=== PATIENT | male | born 1960 | race Two or more races ===

== ENCOUNTER 2024-10-08 13:50 | Inpatient (IN) | payer BC, OTHER ==
[~2024-10-08] VITALS: Ht 167.6 cm; Wt 60.3 kg
--- NOTE | 2024-10-08 14:18 | ED.PDOC ---
HPI (NEURO) HPI Comments 64 year old male JAVIER presents to the ED with chief complaint of generalized weakness. EMS reports patient was at work when all of a sudden, started to experience weakness with a near syncopal episode, being carried down by co- workers so he does not fall. EMS relays patient was noted to be bradycardic on scene and continued to be so until now. Patient states he has been experiencing some weakness and dizziness since last night. Patient notes he stands for extended periods of time at work. Patient denies any N/V/D, headache, syncope, fever, or chills. Time Seen by MD: 14:13 Reviewed Notes: Nurses Notes, [employer]ing Machine Notes, Medications, Allergies Information Source: Patient, Emergency Med Personnel Mode of Arrival: EMS Severity: Moderate Dizziness/Weakness Severity: Unable to do activities Headache Severity: None Timing: Days Duration: Since onset Prehospital treatment: None Weakness Location: Generalized Symptoms: Near syncope, Weakness Past Medical History PAST MEDICAL HISTORY: Cancer (Esophageal cancer) Surgical History: Denies all surgeries Family History Family History: Reviewed,noncontributory to illness Social History Smoker: Non-Smoker Alcohol: Denies ETOH Use Drugs: Denies Drug Use Lives In: Home Constitutional: denies: chills, diaphoresis, fatigue, fever, malaise, sweats, weakness, others EENTM: denies: blurred vision, double vision, ear bleeding, ear discharge, ear drainage, ear pain, ear ringing, eye pain, eye redness, hearing loss, mouth pain, mouth swelling, nasal discharge, nose bleeding, nose congestion, nose pain, photophobia, tearing, throat pain, throat swelling, voice changes, others Respiratory: denies: cough, hemoptysis, orthopnea, SOB at rest, shortness of breath, SOB with excertion, stridor, wheezing, others Cardiovascular: reports: others (Near syncope); denies: chest pain, dizzy spells, diaphoresis, Dyspnea on exertion, edema, irregular heart beat, left arm pain, lightheadedness, palpitations, PND, syncope Gastrointestinal: denies: abdomen distended, abdominal pain, blood streaked bowels, constipated, diarrhea, dysphagia, difficulty swallowing, hematemesis, melena, nausea, poor appetite, poor fluid intake, rectal bleeding, rectal pain, vomiting, others Genitourinary: denies: burning, dysuria, flank pain, frequency, hematuria, incontinence, penile discharge, penile sore, pain, testicle pain, testicle swelling, urgency, others Neurological: reports: dizziness, weakness; denies: fainting, headache, left sided numbness, left sided weakness, numbness, paresthesia, pre-existing deficit, right sided numbness, right sided weakness, seizure, speech problems, tingling, tremors, others Musculoskeletal: denies: back pain, gout, joint pain, joint swelling, muscle pain, muscle stiffness, neck pain, others Integumetry: denies: bruises, change in color, change in hair/nails, dryness, laceration, lesions, lumps, rash, wounds, others Allergic/Immunocompromised: denies: Difficulty Healing, Frequent Infections, Hives, Itching, others Hematologic/Lymphatic: denies: anemia, blood clots, easy bleeding, easy bruising, swollen glands, others Endocrine: denies: excessive hunger, excessive sweating, excessive thirst, excessive urination, flushing, intolerance to cold, intolerance to heat, unexplained weight gain, unexplained weight loss, others Psychiatric: denies: anxiety, bipolar disorder, depression, hopeless, panic disorder, schizophrenia, sleepless, suicidal, others All Other Systems: Reviewed and Negative Physical Exam General Appearance: Moderate Distress, Normal HEENT: Normal ENT Inspection, PERRL/EOMI Neck: Full Range of Motion, Non-Tender, Normal, Normal Inspection Respiratory: Chest Non-Tender, Lungs Clear, No Accessory Muscle Use, No Respiratory Distress, Normal Breath Sounds Cardiovascular: Bradycardia, No Edema, No JVD, No Murmur, No Gallop, Normal Peripheral Pulses Breast Exam: Deferred Gastrointestinal: No Organomegaly, Non Tender, No Pulsatile Mass, Normal Bowel Sounds, Soft Genitalia: Deferred Pelvic: Deferred Rectal: Deferred Extremities: No calf tenderness, Normal capillary refill, Normal inspection, Normal range of motion, Non-tender, No pedal edema Musculoskeletal : Apperance: Normal 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 Was a procedure done?: No Differential Diagnosis (SZ) Seizure: Psychogenic Seizure, Closed Head Injury, CVA/TIA X-Ray, Labs, Meds, VS Vital Signs Date Time Temp Pulse Resp B/P (MAP) Pulse Ox O2 Delivery O2 Flow Rate FiO2 10/08/24 15:06 54 16 131/87 (102) 97 10/08/24 14:26 97.4 52 14 136/88 (104) 98 10/08/24 14:19 56 Lab Test 10/08/24 14:34 Range/Units White Blood Count 5.8 4.4-10.8 10^3/uL Red Blood Count 4.85 4.5-5.90 10^6/uL Hemoglobin 13.2 L 13.5-17.5 g/dL Hematocrit 40.1 L 41.0-53.0 % Mean Corpuscular Volume 82.7 80.0-100.0 fL Mean Corpuscular Hemoglobin 27.3 L 28.0-32.0 pg Mean Corpuscular Hemoglobin Concent 33.0 32.0-36.0 g/dL Red Cell Distribution Width 15.0 H 11.8-14.3 % Platelet Count 351 140-450 10^3/uL Mean Platelet Volume 6.2 L 6.9-10.8 fL Neutrophils (%) (Auto) 80.1 H 37.0-80.0 % Lymphocytes (%) (Auto) 11.2 10.0-50.0 % Monocytes (%) (Auto) 6.1 0.0-12.0 % Eosinophils (%) (Auto) 1.3 0.0-7.0 % Basophils (%) (Auto) 1.3 0.0-2.0 % Neutrophils # (Auto) 4.6 1.6-8.6 10 ^3/uL Lymphocytes # (Auto) 0.6 0.4-5.4 10 ^3/uL Monocytes # (Auto) 0.4 0-1.3 10 ^3/uL Eosinophils # (Auto) 0.1 0-0.8 10 ^3/uL Basophils # (Auto) 0.1 0-0.2 10 ^3/uL Nucleated Red Blood Cells 0.0 % Sodium Level 137 136-145 mmol/L Potassium Level 4.5 3.5-5.1 mmol/L Chloride Level 104 98-107 mmol/L Carbon Dioxide Level 24 20-31 mmol/L Anion Gap 9 5-15 Blood Urea Nitrogen 17 9-23 mg/dL Creatinine 0.91 0.700-1.30 mg/dL Glomerular Filtration Rate Calc 95 >90 mL/min BUN/Creatinine Ratio 18.7 10.0-20.0 Serum Glucose 99 74-106 mg/dL Calcium Level 10.1 8.7-10.4 mg/dL Troponin I High Sensitivity 3 L </=54 ng/L Patient alert. Near-syncope. History of nasopharyngeal carcinoma. Vitals stable. Never hit his head on the ground. Bradycardia. Reviewed his history. EKG reviewed does not show any acute changes. Explained to the patient. Continue cardiac monitoring. Chest XR: FINDINGS: Lines and Tubes: None Lungs: No focal consolidation. Pleura: No effusion. No pneumothorax. Cardiomediastinal contours: Unremarkable Bones: No acute osseous abnormality. IMPRESSION: 1. No active disease Images Reviewed?: Images reviewed and evaluated by me Time of 1ST Reevaluation: 15:13 Reevaluation 1ST: Unchanged Patient Education/Counseling: Diagnosis, Treatment Family Education/Counseling: No Family Present Departure 1 Departure Time of Disposition: 14:28 Impression: Primary Impression: Bradycardia Additional Impression: Near syncope Disposition: ADMITTED INPATIENT Admit to: Med Surg Condition: Guarded Critical Care Note Critical Care Time?: Yes (45 min-critical care time only) Stability Stability form required: No Heart Score Heart Score: Heart Score Response (Comments) Value History Slightly Suspicious 0 EKG Normal 0 Age 45-64 1 Risk Factors 1 or 2 risk factors 1 Troponin Normal limit 0 Total 2 I personally scribed for MANUELA QUINONES MD ([email or web address]) on 10/08/24 at 14:18. Electronically submitted by Stanislav Quintana ([email or web address]). I personally scribed for MANUELA QUINONES MD ([email or web address]) on 10/08/24 at 15:23. Electronically submitted by Stanislav Quintana ([email or web address]). MANUELA QUINONES MD Oct 08, 2024 14:18
[2024-10-08 14:45] LABS: Basophils # (auto) 0.1 10 ^3/uL (0-0.2); Basophils % (auto) 1.3 % (0.0-2.0); Eosinophils # (auto) 0.1 10 ^3/uL (0-0.8); Eosinophils % (auto) 1.3 % (0.0-7.0); Hematocrit 40.1 % (41.0-53.0); Hemoglobin 13.2 g/dL (13.5-17.5); Lymphocytes # (auto) 0.6 10 ^3/uL (0.4-5.4); Lymphocytes % (auto) 11.2 % (10.0-50.0); Mean Corpuscular Hemoglobin 27.3 pg (28.0-32.0); Mean Corpuscular Volume 82.7 fL (80.0-100.0); Monocytes # (auto) 0.4 10 ^3/uL (0-1.3); Monocytes % (auto) 6.1 % (0.0-12.0); Neutrophils # (auto) 4.6 10 ^3/uL (1.6-8.6); Neutrophils % (auto) 80.1 % (37.0-80.0); Platelet Count (auto) 351 10^3/uL (140-450); Red Blood Cells 4.85 10^6/uL (4.5-5.90); White Blood Cell 5.8 10^3/uL (4.4-10.8)
--- NOTE | 2024-10-08 14:58 | DVH ---
CHEST RADIOGRAPH Indication:sob Technique: Single frontal view of the chest was obtained Comparison: None FINDINGS: Lines and Tubes: None Lungs: No focal consolidation. Pleura: No effusion. No pneumothorax. Cardiomediastinal contours: Unremarkable Bones: No acute osseous abnormality. IMPRESSION: 1. No active disease
[2024-10-08 15:01] LABS: Chloride 104 mmol/L (98-107); Potassium 4.5 mmol/L (3.5-5.1); Sodium 137 mmol/L (136-145)
[2024-10-08 15:02] LABS: Anion Gap 9 (5-15); Calcium 10.1 mg/dL (8.7-10.4); Carbon Dioxide 24 mmol/L (20-31)
[2024-10-08 15:06] VITALS: PULSE 62; RESP 16; O2SAT 98
[2024-10-08 15:07] LABS: BUN/Creatinine Ratio 18.7 (10.0-20.0); Blood Urea Nitrogen 17 mg/dL (9-23); Glucose 99 mg/dL (74-106)
[2024-10-08] MEDS ORDERED: HYDROcodone-ACET 5/325MG TAB PO PRN (17:30)
[2024-10-08] MEDS ORDERED: LORazepam 0.5 MG TAB PO PRN (17:30)
[2024-10-08] MEDS ORDERED: MAALOX PLUS or MAALOX 30 ML PO PRN (17:30)
[2024-10-08] MEDS ORDERED: DOCUSATE SOD 100 MG CAP PO PRN (17:30)
[2024-10-08] MEDS ORDERED: ACETAMINOPHEN 325 MG TAB PO PRN (17:30)
[2024-10-08] MEDS ORDERED: ONDANSETRON HCL 4 MG/2 ML VIAL IV PRN (17:30)
[2024-10-08] MEDS: SODIUM CHLORIDE 0.9% 1,000 ML IV ONE (17:52)
--- NOTE | 2024-10-08 17:58 | DVHHP2 ---
History of Present Illness Reason for Visit: weakness History of Present Illness 64 yo with complaints of weakness and dizziness and passing out for the last day or so to the point he had a near complete syncopal episode that he was assisted with no stated fall related injuries but continued weakness and discomfort patient recommended for ed admission for further evaluation and continued management Cardiovascular: syncope Review of Systems Constitutional: Yes: Weakness; No: Fever, Chills, Sweats, Malaise, Other Eyes: No: Pain, Vision change, Conjunctivae inflammation, Eyelid inflammation, Other, Redness ENT: No: Ear pain, Ear discharge, Nose pain, Nose discharge, Nose congestion, Mouth pain, Mouth swelling, Throat pain, Throat swelling, Other Respiratory: No: Cough, Dry, Shortness of breath, SOB with excertion, Wheezing, Hemoptysis, Pleuritic Pain, Sputum, Wheezing, Other Cardiovascular: No: Chest Pain, Palpitations, Orthopnea, Paroxysmal Noc. Dyspnea, Edema, Lt Headedness, Other Gastrointestinal: No: Nausea, Vomiting, Abdominal Pain, Diarrhea, Constipation, Melena, Hematochezia, Other Genitourinary: No Dysuria, No Frequency, No Incontinence, No Hematuria, No Retention, No Other Musculoskeletal: No: other, neck pain, shoulder pain, arm pain, back pain, hand pain, leg pain, foot pain Skin: No: Rash, Lesions, Jaundice, Bruising, Other Neurological: Weakness; No: Numbness, Incoordination, Change in speech, Confusion, Seizures, Other Allergies: Coded Allergies: NO KNOWN ALLERGIES (Unverified , 10/08/24) Medications Current Medications Medications Dose Ordered Sig/Agnieszka Route Start Time Stop Time Status Last Admin Dose Admin Sodium Chloride 1,000 ml @ 60 mls/hr [id number] IV 10/08/24 17:30 UNV Lorazepam 0.5 mg Q6HP PRN PO 10/08/24 17:30 UNV Al Hydrox/Mg Hydrox/Simethicone 30 ml Q6HP PRN PO 10/08/24 17:30 UNV Docusate Sodium 100 mg BIDPRN PRN PO 10/08/24 17:30 UNV Acetaminophen 650 mg Q6HP PRN PO 10/08/24 17:30 UNV Acetaminophen/ Hydrocodone Bitart 1 tab Q4HP PRN PO 10/08/24 17:30 UNV Ondansetron HCl 4 mg Q4HP PRN IV 10/08/24 17:30 UNV Exam Vital Signs Vital Signs Date Time Temp Pulse Resp B/P (MAP) Pulse Ox O2 Delivery O2 Flow Rate FiO2 10/08/24 16:29 98.0 60 14 120/89 (99) 97 98.0 10/08/24 15:06 Room Air* 0 21 General Appearance: Oriented X3 HEENT: Atraumatic, PERRLA Respiratory: Clear to auscultation, Normal air movement Cardiovascular: Regular rate, Normal S1, Normal S2 Abdominal: Normal bowel sounds, Soft Extremities: No clubbing, No cyanosis, No edema Skin: No rashes, No breakdown, No significant lesion Neuro: Normal gait, Normal speech Psych/Mental Status: Mental status NL, Mood NL Labs/Xrays Labs Test 10/08/24 14:34 Range/Units White Blood Count 5.8 4.4-10.8 10^3/uL Red Blood Count 4.85 4.5-5.90 10^6/uL Hemoglobin 13.2 L 13.5-17.5 g/dL Hematocrit 40.1 L 41.0-53.0 % Mean Corpuscular Volume 82.7 80.0-100.0 fL Mean Corpuscular Hemoglobin 27.3 L 28.0-32.0 pg Mean Corpuscular Hemoglobin Concent 33.0 32.0-36.0 g/dL Red Cell Distribution Width 15.0 H 11.8-14.3 % Platelet Count 351 140-450 10^3/uL Mean Platelet Volume 6.2 L 6.9-10.8 fL Neutrophils (%) (Auto) 80.1 H 37.0-80.0 % Lymphocytes (%) (Auto) 11.2 10.0-50.0 % Monocytes (%) (Auto) 6.1 0.0-12.0 % Eosinophils (%) (Auto) 1.3 0.0-7.0 % Basophils (%) (Auto) 1.3 0.0-2.0 % Neutrophils # (Auto) 4.6 1.6-8.6 10 ^3/uL Lymphocytes # (Auto) 0.6 0.4-5.4 10 ^3/uL Monocytes # (Auto) 0.4 0-1.3 10 ^3/uL Eosinophils # (Auto) 0.1 0-0.8 10 ^3/uL Basophils # (Auto) 0.1 0-0.2 10 ^3/uL Nucleated Red Blood Cells 0.0 % Sodium Level 137 136-145 mmol/L Potassium Level 4.5 3.5-5.1 mmol/L Chloride Level 104 98-107 mmol/L Carbon Dioxide Level 24 20-31 mmol/L Anion Gap 9 5-15 Blood Urea Nitrogen 17 9-23 mg/dL Creatinine 0.91 0.700-1.30 mg/dL Glomerular Filtration Rate Calc 95 >90 mL/min BUN/Creatinine Ratio 18.7 10.0-20.0 Serum Glucose 99 74-106 mg/dL Calcium Level 10.1 8.7-10.4 mg/dL Troponin I High Sensitivity 3 L </=54 ng/L Assessment/Plan Assessment/Plan Admit Med/surge Near Syncope General weakness unknown source CT completed no acute stroke onset unconfirmed previous day or so no current signs of infection urine still pending possible UTI awaiting confirmation IV hydration bradycardia possible need for cardio evaluation Plan discussed with: Patient My Orders Orders - FABIANA GARCIA MD Procedure Category Date Status Time Urinalysis LAB 10/08/24 Logged 17:05 Sodium Chloride 0.9% [facility] 10/08/24 In Process 17:15 Admit ADMIT 10/08/24 Transmitted 17:27 Code Status CODE 10/08/24 Transmitted 17:27 Vital Signs [facility] 10/08/24 In Process 17:27 Review Orders With [facility] 10/08/24 In Process Adm. 17:27 Regular Diet DIET 10/08/24 Transmitted Dinner Sodium Chloride 0.9% [facility] 10/08/24 Logged 17:30 Lorazepam Tablet [facility] 10/08/24 Logged (Ativan Tablet) 17:30 Alum & Mag PHA 10/08/24 Logged Hydrox-Simethicone 17:30 Docusate Sodium [facility] 10/08/24 Logged Capsule (Colace 17:30 Acetaminophen Tablet [facility] 10/08/24 Logged (Tylenol Tablet) 17:30 Notify Of Changes [facility] 10/08/24 In Process From Base 17:27 Advance Directive [facility] 10/08/24 In Process 17:27 Basic Metabolic Panel LAB 10/09/24 Verified 04:00 Complete Blood Count LAB 10/09/24 Verified 04:00 Patient Condition ORDERS 10/08/24 Transmitted 17:27 Allergies TRACIE 10/08/24 In Process 17:27 Hydrocodone-Acet PHA 10/08/24 Logged 5/325mg Tab ([place] 17:30 Ondansetron Hcl PHA 10/08/24 Logged (Zofran) 17:30 Notify Md Of Changes [facility] 10/08/24 In Process From Base 17:27 Property Management Intern For [facility] 10/08/24 In Process 24 Hours 17:27 Problem List: (1) Bradycardia (2) Near syncope Date of Service: Oct 08, 2024 Billing Provider: FABIANA GARCIA MD Common Visit Codes: [id number] INP/OBS CARE (HIGH) FABIANA GARCIA MD Oct 08, 2024 17:57
[2024-10-08 17:59] LABS: Urine Bacteria None Seen /hpf (None Seen); Urine WBC None Seen /hpf (0 - 3)
[2024-10-08 18:18] LABS: Urine Blood Negative /uL (Negative); Urine Clarity Clear (Clear); Urine Color Colorless (Yellow); Urine Protein, UAD Negative (Negative); Urine Specific Gravity 1.009 (1.001-1.035); Urine Urobilinogen Normal (Negative)
--- NOTE | 2024-10-08 18:49 | ECG ---
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
[2024-10-08] MEDS: SODIUM CHLORIDE 0.9% 1,000 ML IV SCH (19:30)
[2024-10-08 20:58] VITALS: PULSE 64; RESP 17; O2SAT 98
[2024-10-09 05:51] LABS: Basophils # (auto) 0.2 10 ^3/uL (0-0.2); Basophils % (auto) 4.5 % (0.0-2.0); Eosinophils # (auto) 0.2 10 ^3/uL (0-0.8); Eosinophils % (auto) 5.1 % (0.0-7.0); Hemoglobin 12.2 g/dL (13.5-17.5); Lymphocytes # (auto) 1.3 10 ^3/uL (0.4-5.4); Lymphocytes % (auto) 29.7 % (10.0-50.0); Mean Corpuscular Hemoglobin 27.1 pg (28.0-32.0); Mean Corpuscular Hgb Conc. 32.9 g/dL (32.0-36.0); Mean Corpuscular Volume 82.6 fL (80.0-100.0); Monocytes # (auto) 0.5 10 ^3/uL (0-1.3); Monocytes % (auto) 10.6 % (0.0-12.0); Neutrophils # (auto) 2.2 10 ^3/uL (1.6-8.6); Neutrophils % (auto) 50.1 % (37.0-80.0); Platelet Count (auto) 352 10^3/uL (140-450); Red Blood Cells 4.48 10^6/uL (4.5-5.90); Red Cell Distribution Width 15.3 % (11.8-14.3); White Blood Cell 4.3 10^3/uL (4.4-10.8)
[2024-10-09 06:04] LABS: Anion Gap 10 (5-15); Carbon Dioxide 22 mmol/L (20-31); Chloride 109 mmol/L (98-107); Sodium 141 mmol/L (136-145)
[2024-10-09 06:06] LABS: Calcium 8.9 mg/dL (8.7-10.4)
[2024-10-09 06:10] LABS: Glucose 80 mg/dL (74-106)
[2024-10-09 06:11] LABS: BUN/Creatinine Ratio 17.5 (10.0-20.0); Blood Urea Nitrogen 14 mg/dL (9-23)
[2024-10-09 07:30] VITALS: PULSE 56; RESP 16; O2SAT 96
--- NOTE | 2024-10-09 15:00 | DVHPN2 ---
Subjective Patient continues to report having some dizziness Reviewed: Care Plan, H&P, Labs, Medications Changes from previous H/P or p: No Changes General: Per HPI Eyes: No Pain, No Vision change, No Conjunctivae inflammation, No Eyelid inflammation, No Other, No Redness ENT: No Ear pain, No Ear discharge, No Nose pain, No Nose discharge, No Nose congestion, No Mouth pain, No Mouth swelling, No Throat pain, No Throat swelling, No Other Cardiovascular: No Chest Pain, No Palpitations, No Orthopnea, No Paroxysmal Noc. Dyspnea, No Edema, No Lt Headedness, No Other Respiratory: No Cough, No Dry, No Shortness of breath, No SOB with excertion, No Wheezing, No Hemoptysis, No Pleuritic Pain, No Sputum, No Other Gastrointestinal: No Nausea, No Vomiting, No Abdominal Pain, No Diarrhea, No Constipation, No Melena, No Hematochezia, No Other Genitourinary: No Dysuria, No Frequency, No Incontinence, No Hematuria, No Retention, No Other Musculoskeletal: No other, No neck pain, No shoulder pain, No arm pain, No back pain, No hand pain, No leg pain, No foot pain Skin: No Rash, No Lesions, No Jaundice, No Bruising, No Other Objective Vitals Vital Signs Date Time Temp Pulse Resp B/P (MAP) Pulse Ox O2 Delivery O2 Flow Rate FiO2 10/09/24 14:00 61 18 109/73 (85) 96 10/09/24 07:30 Room Air* 0 21 10/08/24 23:00 98.0 98.0 Intake/Output Intake and Output 10/09/24 07:00 Intake Total 200 ml Output Total 850 ml Balance -650 ml Intake IV Total 200 ml Output Urine Total 850 ml General Appearance: Alert, Oriented X3, Cooperative, No acute distress HEENT: Atraumatic, PERRLA Lungs: Clear to auscultation, Normal air movement Cardiovascular: Normal S1, Normal S2 Abdomen: Normal bowel sounds Genitourinary: No Apparent Abnormalities Musculoskeletal: Normal sensory function, Normal motor function Neuro: Normal gait, Normal speech Psych/Mental Status: Mental status NL, Mood NL Medications Current Medications Medications Dose Ordered Sig/Agnieszka Route Start Time Stop Time Status Last Admin Dose Admin Sodium Chloride 1,000 ml @ 60 mls/hr [id number] IV 10/08/24 17:30 10/09/24 09:53 60 MLS/HR Lorazepam 0.5 mg Q6HP PRN PO 10/08/24 17:30 Al Hydrox/Mg Hydrox/Simethicone 30 ml Q6HP PRN PO 10/08/24 17:30 Docusate Sodium 100 mg BIDPRN PRN PO 10/08/24 17:30 Acetaminophen 650 mg Q6HP PRN PO 10/08/24 17:30 Acetaminophen/ Hydrocodone Bitart 1 tab Q4HP PRN PO 10/08/24 17:30 Ondansetron HCl 4 mg Q4HP PRN IV 10/08/24 17:30 Laboratory Results Laboratory Tests 10/09/24 05:18 Chemistry Test 10/09/24 05:18 Calcium Level 8.9 mg/dL (8.7-10.4) Urinalysis Test 10/08/24 17:57 Urine Color Colorless (Yellow) Urine Clarity Clear (Clear) Urine pH 7.0 (5.0-9.0) Urine Specific [place] 1.009 (1.001-1.035) Urine Protein Negative (Negative) Urine Ketones 1+ (Negative) H Urine Blood Negative /uL (Negative) Urine Nitrite Negative (Negative) Urine Bilirubin Negative (Negative) Urine Urobilinogen Normal mg/dL (Negative) Urine Leukocyte Esterase Negative /uL (Negative) Urine RBC 1 /hpf (0 - 3) Urine WBC None seen /hpf (0 - 3) Urine Squamous Epithelial Cells None seen /hpf (<5) Urine Bacteria None seen /hpf (None Seen) Urine Glucose Normal mg/dL (Normal) Labs and/or images reviewed: Labs reviewed by me, Image(s) reviewed by me Assessment/Plan Assessment/Plan Impression: -syncope -hypertensive urgency -history of nasopharyngeal cancer Plan: -CT scan of the head -carotid Doppler study -echocardiogram -orthostatic blood pressures -ambulate patient -further course of care per patient was diagnostic tests Total time spent with patient discussing and formulating plan of care: 35 minutes. This medical document was created using an electronic medical record system with [employer] system. Although this document has been carefully reviewed, there may still be some phonetic and typographical errors. These areas are purely typographical due to imperfections of the software programs, and do not reflect any compromise in the patient's medical care. Plan discussed with: Patient, Other (RN) My Orders Orders - TIBURCIO CORTES NP Procedure Category Date Status Time Head Without Contrast CT 10/09/24 Verified 14:55 Carotid Duplx W Color US 10/09/24 Verified DOP 14:55 Echo 2d Mode Cardiac US 10/09/24 Verified DOP 14:55 Date of Service: Oct 09, 2024 Billing Provider: TIBURCIO CORTES NP Common Visit Codes: [id number] INP/OBS CARE(HIGH) TIBURCIO CORTES NP Oct 09, 2024 15:00
--- NOTE | 2024-10-09 15:41 | DVH ---
EXAM: CT HEAD WITHOUT CONTRAST HISTORY: Syncope COMPARISON: None TECHNIQUE: Axial images of the head were obtained and reformatted in coronal and sagittal planes. All CT scans at this medical facility are performed using dose modulation techniques as appropriate t o a performed exam including the following: Automated exposure control was utilized; adjustment of th e MA and/or KV according to patient size; and use of iterative reconstruction technique. CT Dose: CTDI volume is 61.43 mGy. Dose-length product is 1210.49 mGy*cm FINDINGS: There is no evidence of acute intracranial hemorrhage, mass, mass effect midline shift. There is no h ydrocephalus or extra-axial fluid collection. Sanchez-white matter differentiation is maintained.. There is benign mineralization in the bilateral basal ganglia. The visualized paranasal sinuses are clear. The calvarium is intact. IMPRESSION: 1. No acute intracranial process. HS:Y
--- NOTE | 2024-10-09 15:53 | DVH ---
Carotid Duplex Date: 10/09/2024 03:23 PM Clinical History: syncope Comparison: None Technique: Duplex Doppler evaluation of the extracranial carotid and vertebral arteries including color Doppler and spectral/pulsed waveform analysis was performed. Findings: RIGHT SIDE: Scattered mixed atherosclerotic plaques are present. The peak systolic velocities are 59 cm/s in the distal CCA and 84 cm/s in the proximal ICA.The ICA/CC A ratio is less than 2. The external carotid artery is patent with peak systolic velocity of 48 cm/s proximally. There is appropriate antegrade flow in the right vertebral artery. LEFT SIDE: Scattered mixed atherosclerotic plaques are present. The peak systolic velocities are 54 cm/s in the distal CCA and 91 cm/s in the proximal ICA.. The ICA /CCA ratio is less than 2. The external carotid artery is patent with peak systolic velocity of 22 cm/s proximally. There is appropriate antegrade flow in the left vertebral artery. IMPRESSION: 1. No hemodynamically significant stenosis noted in the right carotid system. 2. No hemodynamically significant stenosis noted in the left carotid system. 3. Reference: Radiology 2003; 229:340-346 HS:Y
[2024-10-09 20:00] VITALS: RESP 16; O2SAT 96
[2024-10-09] MEDS: hydrALAZINE HCL 25 MG TAB PO SCH (22:00)
[2024-10-10] VITALS (9 sets, daily range): BP systolic 88–196; BP diastolic 43–136; PULSE 61–100; RESP 16–18; TEMP 98–98.4; O2SAT 95–98
--- NOTE | 2024-10-10 12:46 | DVHDS2 ---
Discharge Summary Date of Admission Oct 08, 2024 at 17:27 Date of Discharge: Oct 10, 2024 Admitting Diagnosis Near-syncope, probably secondary to bradycardia Labs/Diagnostic Data: Laboratory Results Test 10/09/24 05:18 10/08/24 17:57 10/08/24 14:34 White Blood Count 4.3 10^3/uL (4.4-10.8) Red Blood Count 4.48 10^6/uL (4.5-5.90) Hemoglobin 12.2 g/dL (13.5-17.5) Hematocrit 37.0 % (41.0-53.0) Mean Corpuscular Volume 82.6 fL (80.0-100.0) Mean Corpuscular Hemoglobin 27.1 pg (28.0-32.0) Mean Corpuscular Hemoglobin Concent 32.9 g/dL (32.0-36.0) Red Cell Distribution Width 15.3 % (11.8-14.3) Platelet Count 352 10^3/uL (140-450) Mean Platelet Volume 6.7 fL (6.9-10.8) Neutrophils (%) (Auto) 50.1 % (37.0-80.0) Lymphocytes (%) (Auto) 29.7 % (10.0-50.0) Monocytes (%) (Auto) 10.6 % (0.0-12.0) Eosinophils (%) (Auto) 5.1 % (0.0-7.0) Basophils (%) (Auto) 4.5 % (0.0-2.0) Neutrophils # (Auto) 2.2 10 ^3/uL (1.6-8.6) Lymphocytes # (Auto) 1.3 10 ^3/uL (0.4-5.4) Monocytes # (Auto) 0.5 10 ^3/uL (0-1.3) Eosinophils # (Auto) 0.2 10 ^3/uL (0-0.8) Basophils # (Auto) 0.2 10 ^3/uL (0-0.2) Nucleated Red Blood Cells 0.0 % Sodium Level 141 mmol/L (136-145) Potassium Level 4.0 mmol/L (3.5-5.1) Chloride Level 109 mmol/L (98-107) Carbon Dioxide Level 22 mmol/L (20-31) Anion Gap 10 (5-15) Blood Urea Nitrogen 14 mg/dL (9-23) Creatinine 0.80 mg/dL (0.700-1.30) Glomerular Filtration Rate Calc 99 mL/min (>90) BUN/Creatinine Ratio 17.5 (10.0-20.0) Serum Glucose 80 mg/dL (74-106) Calcium Level 8.9 mg/dL (8.7-10.4) Urine Color Colorless (Yellow) Urine Clarity Clear (Clear) Urine pH 7.0 (5.0-9.0) Urine Specific [place] 1.009 (1.001-1.035) Urine Protein Negative (Negative) Urine Ketones 1+ (Negative) Urine Blood Negative /uL (Negative) Urine Nitrite Negative (Negative) Urine Bilirubin Negative (Negative) Urine Urobilinogen Normal mg/dL (Negative) Urine Leukocyte Esterase Negative /uL (Negative) Urine RBC 1 /hpf (0 - 3) Urine WBC None seen /hpf (0 - 3) Urine Squamous Epithelial Cells None seen /hpf (<5) Urine Bacteria None seen /hpf (None Seen) Urine Glucose Normal mg/dL (Normal) Troponin I High Sensitivity 3 ng/L (</=54) Other Laboratory Tests 10/09/24 05:18 Brief Hx & Hospital Course: History of Present Illness 64 yo with complaints of weakness and dizziness and passing out for the last day or so to the point he had a near complete syncopal episode that he was assisted with no stated fall related injuries but continued weakness and discomfort patient recommended for ed admission for further evaluation and continued management. Course of hospitalization: After assuming care, CT scan of the head was performed which was unremarkable. Patient also had carotid Doppler study which was negative for any stenosis. Patient also had echocardiogram with normal ejection fraction, no aortic stenosis noted. Patient had orthostatic blood pressures performed today. Patient was actually found to be hypertensive. Patient's symptoms have resolved. He was requesting to be discharged home. For the patient's hypertension, he will be prescribed amlodipine 10 mg p.o. daily. While in the hospital he was given IV hydralazine which improved his hypertension. He is instructed to follow up with his PCP in 1-2 weeks. All questions answered. Physical examination General: Alert and Oriented x3. No acute distress. Well-nourished. Eyes: EOMI. Anicteric. HENT: Moist mucous membranes. Lungs: Clear to auscultation bilaterally. No accessory muscle use. Cardiovascular: Regular rate and rhythm. No murmur. No JVD. Abdomen: Soft, non-tender and non-distended. No palpable masses. Extremities: No edema. Non-tender. Skin: No rashes or lesions. Warm. Neurologic: No focal neurological deficits. CN II-XII grossly intact, but not individually tested. Psychiatric: Cooperative. Appropriate mood and affect. Total time spent with patient discussing and formulating plan of care: 35 minutes. This medical document was created using an electronic medical record system with [employer] system. Although this document has been carefully reviewed, there may still be some phonetic and typographical errors. These areas are purely typographical due to imperfections of the software programs, and do not reflect any compromise in the patient's medical care. Condition at Discharge: Fair Final Diagnosis/Problems List Near-syncope secondary to hypertensive crisis Secondary Diagnosis: -hypertensive urgency -history of nasopharyngeal cancer Discharge Disposition: Home Discharge Instruct/Medications Diet: Regular Activity: No Restrictions, As Tolerated Follow Up/Referral: Follow up with PCP, Dr. Chakraborty in 1-2 weeks Medications: Continue all previous home medications Amlodipine 10 mg p.o. daily 36 Discharge Statement: "Patient was advised to return to the ER or call 911 if any headaches, dizziness, shortness of breath, chest pain, abdominal pain, bleeding, fevers, or worsening of medical condition. Patient was counseled about treatment plan, medications, possible side effects, patientverbalized understanding. All questions were answered to the best of my ability. This discharge took greater then 30 minutes in planning, reviewing documentation, counseling the patient, and discussing with other team members." ASSESSMENT ASSESSMENT Assessment Near-syncope secondary to hypertensive crisis Date of Service: Oct 10, 2024 Billing Provider: TIBURCIO CORTES NP Common Visit Codes: 22121-LSE/OBS DISCH DAY >30min TIBURCIO CORTES NP Oct 10, 2024 12:46
[2024-10-10] MEDS ORDERED: AMLO1TAB23 PO (12:47)
[2024-10-10] MEDS: amLODIPine BESYLATE 5 MG TAB PO ONE (13:51)
--- NOTE | 2024-10-10 17:50 | DVHSR ---
APPROVED REPORT EXAM: Two-dimensional and M-mode echocardiogram with Doppler and color Doppler. Blood Pressure: 135/89 mmHg INDICATION Syncope RISK FACTORS Height: 66, Weight: 132 DIMENSIONS LVDd4.2 (3.8-5.7cm)LA (2D)3.8 (1.9-4.0cm)Aortic Root3.6 (2.0-3.7cm) LVDs2.3 (2.5-4.0cm)LA (MM) (1.9-4.0cm)Aortic Cusp Exc2.2 (1.5-2.0cm) EF (%) 76.0 (55-70%)Rt. Atrium3.6 (1.9-4.0cm)Asc. Aorta3.9 cm IVSd1.0 (0.7-1.1cm)RV (D) (1.8-2.4cm) PWd1.0 (0.7-1.1cm) Mitral Valve MitralMitral Stenosis E wave0.71m/sMV Mean GR.mmHg A wave0.64m/sMV Peak GR.mmHg E/A ratio1.12D MVAcm2 DECEL [id number] 1/2 [place] Aortic Valve Aortic ValveAortic Stenosis V10.90m/Jovon Mean GR.3mmHg V21.15m/Jovon Peak GR.5mmHg LVOT Diameter2.3 (1.8-2.4cm)Doppler AVA3.25cm2 Pulmonic Valve V20.62m/s Conclusion lvef 60% by visual estimate angelo l rv function normal atria no severe valve abnormalities noted
[2024-10-11] MEDS ORDERED: amLODIPine BESYLATE 5 MG TAB PO SCH (10:00)
== END 2024-10-10 16:55 | disposition home or self-care (01) | DRG 305 ==
LOC: ER 13:50 → EDBD 13:50 → OVERFLOW 17:27 → EAST 10-10 02:30
PROVIDERS: ADMIT Hospitalist; ATTEND Nurse Practitioner Acute Care
DX: I16.0 Hypertensive urgency (principal); Z85.818 Personal history of malignant neoplasm of other sites of lip, oral cavity, and pharynx; Z85.01 Personal history of malignant neoplasm of esophagus; Z79.899 Other long term (current) drug therapy
CPT/HCPCS: 36415; 70450; 71045; 80048; 81001; 84484; 85025; 93005; 93306; 93886; 99291; G0378